=== PATIENT | male | born 1935 | race Caucasian/White ===

== ENCOUNTER 2018-07-31 05:20 | Inpatient (IN) | payer MEDICARE, BC ==
[2018-07-31] MEDS ORDERED: BUPIVACAINE 0.5% (SDV) 30 ML, morphine SULFATE (PF) 8 MG, EPINEPHrine 0.3 MG, KETOROLAC... IRR (06:00)
[2018-07-31] MEDS ORDERED: CEFAZOLIN 2 GM/50 ML (PMX) 50 ML IVPB (06:00)
[2018-07-31] MEDS ORDERED: TRANEXAMIC ACID 1GM/100ML(PMX) 100 ML IVPB (06:00)
[2018-07-31] MEDS: GABAPENTIN 300 MG CAP PO ×2 (06:06→20:52)
[2018-07-31] MEDS: DEXAMETHASONE 1 MG TAB PO (06:06)
[2018-07-31] MEDS: LACTATED RINGER'S 1,000 ML IV* (06:06)
[2018-07-31] MEDS ORDERED: THROMBIN 5000 UNIT VIAL (06:44)
[2018-07-31] MEDS: POLYMYXIN/BACITRACIN 1L IRRIG (06:44)
[2018-07-31] MEDS ORDERED: CA CHLORIDE 10% 10 ML SYRINGE (06:44)
[2018-07-31] MEDS ORDERED: FENTAnyl 50 MCG/ML VIAL (06:58)
[2018-07-31] MEDS ORDERED: MIDAZOLAM 1 MG/ML 2 ML INJ (06:59)
[2018-07-31] MEDS ORDERED: PROPOFOL 20 ML ×2 (06:59→08:00)
[2018-07-31] MEDS ORDERED: IPRATROPIUM (NEB) 0.5 MG/2.5 ML AMP HHN (07:00)
[2018-07-31] MEDS ORDERED: ONDANSETRON 4 MG INJ IV ×2 (07:00→09:00)
[2018-07-31] MEDS ORDERED: DIPHENHYDRAMINE 50 MG INJ IV ×2 (07:00→09:00)
[2018-07-31] MEDS ORDERED: ROCURONIUM 50 MG INJ ×2 (07:00→08:01)
[2018-07-31] MEDS ORDERED: DEXAMETHASONE 4 MG/ML 5 ML INJ (07:00)
[2018-07-31] MEDS ORDERED: hydrALAzine 20 MG INJ IV (07:00)
[2018-07-31] MEDS ORDERED: GLYCOPYRROLATE 0.4 MG INJ (07:00)
[2018-07-31] MEDS ORDERED: MEPERIDINE 25 MG INJ IV (07:00)
[2018-07-31] MEDS ORDERED: LEVALBUTEROL (NEB) 1.25 MG/0.5 ML AMP HHN (07:00)
[2018-07-31] MEDS ORDERED: LORAZEPAM 2 MG INJ IV (07:00)
[2018-07-31] MEDS ORDERED: DESFLURANE 15 MIN (07:00)
[2018-07-31] MEDS ORDERED: FENTAnyl 50 MCG/ML VIAL IV ×2 (07:00)
[2018-07-31] MEDS ORDERED: MIDAZOLAM 1 MG/ML 2 ML INJ IV (07:00)
[2018-07-31] MEDS ORDERED: NEOSTIGMINE 3 MG/3 ML SYRINGE (07:00)
[2018-07-31] MEDS ORDERED: CEFAZOLIN 1 GM INJ (07:00)
[2018-07-31] MEDS ORDERED: ONDANSETRON 4 MG INJ (07:00)
[2018-07-31] MEDS ORDERED: HYDROmorphONE 1 MG/5 ML IV SYRINGE IV ×3 (07:00)
[2018-07-31] MEDS ORDERED: LABETALOL HCL 20MG INJ IV (07:00)
[2018-07-31] MEDS ORDERED: SUGAMMADEX SODIUM 200 MG/2 ML VIAL IV (07:00)
[2018-07-31] MEDS ORDERED: METOCLOPRAMIDE 10 MG INJ (07:00)
[2018-07-31] MEDS ORDERED: ROPIVACAINE 0.5 % 30 ML VIAL (07:02)
[2018-07-31] MEDS ORDERED: TRANEXAMIC ACID 1GM/100ML(PMX) 100 ML (07:04)
[2018-07-31] MEDS ORDERED: SUCCINYLCHOLINE CHLORIDE 100 MG/5 ML SYG IV (08:01)
[2018-07-31] MEDS ORDERED: LIDOCAINE 2% (SDV) 5 ML INJ (08:01)
[2018-07-31] MEDS ORDERED: LOPERAMIDE 2 MG CAP PO (09:00)
[2018-07-31] MEDS ORDERED: oxyCODONE 5 MG TAB PO (09:00)
[2018-07-31] MEDS ORDERED: KETOROLAC 15 MG INJ IV (09:00)
[2018-07-31] MEDS ORDERED: HYDROmorphONE 1 MG/ML SYG IV (09:00)
[2018-07-31] MEDS ORDERED: MAGNESIUM HYDROXIDE 30ML CUP PO (09:00)
[2018-07-31] MEDS ORDERED: ZOLPIDEM 5 MG TAB PO (09:00)
[2018-07-31] MEDS ORDERED: NACL 0.9% 3 ML SYG IV (09:00)
[2018-07-31] MEDS: TRANEXAMIC ACID 1GM/100ML(PMX) 100 ML IVPB (09:10)
[2018-07-31] MEDS: CEFAZOLIN 1 GM/50 ML (PMX) 50 ML IVPB ×2 (09:10→17:54)
[2018-07-31] MEDS: DEXAMETHASONE 2 MG TAB PO ×2 (11:27→17:54)
[2018-07-31] MEDS: SENNA/DOCUSATE NA (8.6MG/50MG) TAB PO ×2 (11:28→20:52)
[2018-07-31] MEDS: ACETAMINOPHEN 500 MG TAB PO ×2 (11:30→17:59)
[2018-07-31] MEDS: ATORVASTATIN 10 MG TAB PO (20:51)
[2018-07-31] MEDS: traZODone 50 MG TAB PO (20:51)
[2018-08-01] MEDS: CEFAZOLIN 1 GM/50 ML (PMX) 50 ML IVPB (00:28)
[2018-08-01] MEDS: ACETAMINOPHEN 500 MG TAB PO ×2 (00:28→05:39)
[2018-08-01] MEDS: DEXAMETHASONE 2 MG TAB PO ×2 (00:28→05:39)
[2018-08-01] MEDS: oxyCODONE 5 MG TAB PO ×3 (00:36→10:13)
[2018-08-01] MEDS: LACTATED RINGER'S 1,000 ML IV* (06:00)
[2018-08-01] MEDS: SENNA/DOCUSATE NA (8.6MG/50MG) TAB PO (08:34)
== END 2018-08-01 11:20 | disposition home or self-care (01) | DRG 483 ==
LOC: REC 05:20 → MS1 10:00
PROC: 0RRJ00Z Replacement of Right Shoulder Joint with Reverse Ball and Socket Synthetic Substitute, Open Approach (ICD-10-PCS; principal; 2018-07-31 07:00)
PROC: 0LS30ZZ Reposition Right Upper Arm Tendon, Open Approach (ICD-10-PCS; 2018-07-31 07:00)
DX: M19.011 Primary osteoarthritis, right shoulder (principal); M75.101 Unspecified rotator cuff tear or rupture of right shoulder, not specified as traumatic; E78.00 Pure hypercholesterolemia, unspecified; Z85.118 Personal history of other malignant neoplasm of bronchus and lung; Z87.891 Personal history of nicotine dependence
CPT/HCPCS: 73030-RT; 86999; 88304; 88311; 97161